=== PATIENT | male | born 1990 | race Two or more races ===

== ENCOUNTER → 2017-03-26 | Outpatient (CLI) | payer OTHER | END | disposition home or self-care (01) | LOC: Rad HDHVI 14:09 | PROVIDERS: ATTEND Internal Medicine Cardiovascular Disease | DX: I48.0 Paroxysmal atrial fibrillation (principal); E11.9 Type 2 diabetes mellitus without complications | CPT/HCPCS: 93306 ==

== ENCOUNTER 2017-08-04 16:20 | Inpatient (IN) | payer OTHER ==
[~2017-08-04] VITALS: Ht 195.6 cm; Wt 132.7 kg
[2017-08-04 18:22] LABS: Basophils # (auto) 0 uL; Basophils % (auto) 0.4 % (0.0-2.0); Eosinophils # (auto) 0 uL; Eosinophils % (auto) 0.5 % (0.0-7.0); Hematocrit 45.3 % (41.0-53.0); Hemoglobin 15.2 g/dL (13.5-17.5); Lymphocytes # (auto) 1.4 uL; Lymphocytes % (auto) 19.5 % (10.0-50.0); Mean Corpuscular Hemoglobin 28.6 pg (28.0-32.0); Mean Corpuscular Hgb Conc. 33.5 g/dL (32.0-36.0); Mean Corpuscular Volume 85.4 fL (80.0-100.0); Monocytes # (auto) 0.5 uL; Monocytes % (auto) 7.3 % (0.0-12.0); Neutrophils # (auto) 5.3 uL; Neutrophils % (auto) 72.3 % (37.0-80.0); Platelet Count (auto) 296 10^3/uL (140-450); Red Blood Cells 5.31 10^6/uL (4.5-5.90); Red Cell Distribution Width 14.6 % (11.8-14.3); White Blood Cell 7.4 10^3/uL (4.4-10.8)
[2017-08-04 18:35] LABS: INR 1.05 (0.9-1.15); Prothrombin Time 11.4 sec (9.37-12.3)
[2017-08-04 18:40] LABS: Albumin 4.1 g/dL (3.4-5.0); BUN/Creatinine Ratio 14.9; Calcium 9.1 mg/dL (8.5-10.1); Magnesium 2.1 mg/dL (1.6-2.6); Potassium 3.8 mmol/L (3.5-5.1)
[2017-08-04 18:42] LABS: Bilirubin, Total 0.5 mg/dL (0.2-1.0); Total Protein 7.8 g/dL (6.4-8.2)
[2017-08-04] MEDS ORDERED: DILTIAZEM HCL 25 MG/5 ML VIAL IV ONE (23:00)
[2017-08-04] MEDS ORDERED: ONDANSETRON HCL 4 MG/2 ML VIAL IV PRN (23:45)
[2017-08-04] MEDS ORDERED: METOPROLOL TARTRATE 1MG/1ML-5ML VIAL IV PRN (23:45)
[2017-08-04] MEDS ORDERED: ACETAMINOPHEN 500 MG TAB PO PRN (23:45)
[2017-08-04 23:59] LABS: Alcohol, Urine < 3.0 mg/dL (0-5); Amphetamine Screen, Urine NEGATIVE (NEGATIVE); Barbiturate Scree,Urine NEGATIVE (NEGATIVE); Benzodiazephine Screen, Urine NEGATIVE (NEGATIVE); Cannabinoid Screen, Urine NEGATIVE (NEGATIVE); Cocaine Screen, Urine NEGATIVE (NEGATIVE); Opiate Scree,Urine NEGATIVE (NEGATIVE); Phencyclidine Screen, Urine NEGATIVE (NEGATIVE)
[2017-08-05 05:26] VITALS: BP_SYST 136; BP_SYST 139; BP_DIAS 76; BP_DIAS 80
[2017-08-05 07:02] LABS: Basophils # (auto) 0 uL; Basophils % (auto) 0.6 % (0.0-2.0); Eosinophils # (auto) 0 uL; Eosinophils % (auto) 0.4 % (0.0-7.0); Hematocrit 42.1 % (41.0-53.0); Hemoglobin 14.2 g/dL (13.5-17.5); Lymphocytes # (auto) 1.4 uL; Lymphocytes % (auto) 22.9 % (10.0-50.0); Mean Corpuscular Hemoglobin 28.9 pg (28.0-32.0); Mean Corpuscular Hgb Conc. 33.7 g/dL (32.0-36.0); Mean Corpuscular Volume 85.7 fL (80.0-100.0); Monocytes # (auto) 0.5 uL; Monocytes % (auto) 7.8 % (0.0-12.0); Neutrophils # (auto) 4.2 uL; Neutrophils % (auto) 68.3 % (37.0-80.0); Platelet Count (auto) 259 10^3/uL (140-450); Red Blood Cells 4.91 10^6/uL (4.5-5.90); Red Cell Distribution Width 14.9 % (11.8-14.3); White Blood Cell 6.1 10^3/uL (4.4-10.8)
[2017-08-05 07:27] LABS: BUN/Creatinine Ratio 13.9; Calcium 8.2 mg/dL (8.5-10.1); Potassium 3.9 mmol/L (3.5-5.1)
[2017-08-05 08:00] VITALS: BP 125/79
[2017-08-05 09:00] VITALS: BP 125/79
[2017-08-05] MEDS: SOTALOL HCL 80 MG TAB PO SCH ×2 (10:10→22:06)
[2017-08-05] MEDS: ASPirin-EC 81 mg tab PO SCH (10:10)
[2017-08-05 12:00] VITALS: BP 122/72
[2017-08-05 17:30] VITALS: BP 139/80
[2017-08-05 22:00] VITALS: BP 125/84
[2017-08-06 04:37] VITALS: BP 113/68
[2017-08-06 09:00] VITALS: BP 137/79
[2017-08-06] MEDS: SOTALOL HCL 80 MG TAB PO SCH ×2 (10:07→22:20)
[2017-08-06] MEDS: ASPirin-EC 81 mg tab PO SCH (10:07)
[2017-08-06 13:00] VITALS: BP 122/69
[2017-08-06] MEDS: metFORMIN HYDROCHLORIDE 850 MG TAB PO SCH (15:32)
[2017-08-06] MEDS: MAGNESIUM OXIDE 400 MG TAB PO SCH (15:33)
[2017-08-06] MEDS: diphenhdrAMINE HCL 25 MG CAP PO PRN (16:55)
[2017-08-06 17:00] VITALS: BP 127/72
[2017-08-06 21:58] VITALS: BP 121/69
[2017-08-07 05:00] VITALS: BP 112/69
[2017-08-07] MEDS ORDERED: glipiZIDE 5 MG TAB PO SCH (07:00)
[2017-08-07 09:00] VITALS: BP 114/67
[2017-08-07] MEDS: metFORMIN HYDROCHLORIDE 850 MG TAB PO SCH (09:18)
[2017-08-07] MEDS: SOTALOL HCL 80 MG TAB PO SCH (09:18)
[2017-08-07] MEDS: MAGNESIUM OXIDE 400 MG TAB PO SCH (09:18)
[2017-08-07] MEDS: ASPirin-EC 81 mg tab PO SCH (09:18)
[2017-08-07] MEDS: diphenhdrAMINE HCL 25 MG CAP PO PRN (09:30)
[2017-08-07 10:53] VITALS: BP 114/67
[2017-08-07] MEDS ORDERED: APIXABAN 5 MG TAB PO SCH (12:25)
[2017-08-08] MEDS ORDERED: MAGNESIUM OXIDE 400 MG TAB PO SCH (10:00)
== END 2017-08-07 11:36 | DRG 309 ==
LOC: ER 16:20 → EEVIPCON 16:21 → TELE 16:21 → TELE-E-ADS 08-05 01:21
PROVIDERS: ADMIT Nurse Practitioner Family; ATTEND Internal Medicine
DX: I48.1 Persistent atrial fibrillation (principal); I50.42 Chronic combined systolic (congestive) and diastolic (congestive) heart failure; D68.59 Other primary thrombophilia; I11.0 Hypertensive heart disease with heart failure; I48.92 Unspecified atrial flutter; E11.9 Type 2 diabetes mellitus without complications; E66.9 Obesity, unspecified; Z82.49 Family history of ischemic heart disease and other diseases of the circulatory system; Z83.3 Family history of diabetes mellitus; Z79.82 Long term (current) use of aspirin; Z79.899 Other long term (current) drug therapy; Z87.891 Personal history of nicotine dependence; Z68.34 Body mass index [BMI] 34.0-34.9, adult
CPT/HCPCS: 36415; 71045; 80048; 80053; 80307; 82962; 83735; 83880; 84443; 84484; 85025; 85610; 85730; 93005; 94761; 96374